=== PATIENT | female | born 1990 ===

== ENCOUNTER 2016-09-09 11:03 | Emergency (ER) | payer OTHER ==
[2016-09-09 11:14] VITALS: BP 126/84; PULSE 72; RESP 18; TEMP 98; O2SAT 100
--- NOTE | 2016-09-09 11:30 | ED PDOC ---
HPI: Back Time Seen by Provider: 09/09/16 11:21 Chief Complaint (Nursing): Back Pain History Per: Patient (Back pain since yesterday more on left nonrdaiting. No weakness or paradsthesias. no urinary sxs. Occurred after cleaning/mopping.) Onset/Duration Of Symptoms: Days (2) Current Symptoms Are (Timing): Still Present Quality Of Discomfort: Aching Severity: Moderate Pain Scale Rating Of: 4 Previous Symptoms: Back Pain Associated Symptoms: None Exacerbating Factor(s): Turning, Movement, Sitting Past Medical History Vital Signs: Last Vital Signs Temp 98 F 09/09/16 11:13 Pulse 72 09/09/16 11:13 Resp 18 09/09/16 11:13 BP 126/84 09/09/16 11:13 Pulse Ox 100 09/09/16 11:13 - Medical History PMH: Back Problems - Family History Family History: States: Unknown Family Hx - Home Medications Home Medications: Ambulatory Orders Medication Instructions Recorded Cyclobenzaprine [Cyclobenzaprine 10 mg PO TID #10 tab 09/09/16 HCl] Naproxen [Naprosyn] 500 mg PO Q12H #20 tab 09/09/16 - Allergies Allergies/Adverse Reactions: Allergies Allergy/AdvReac Type Severity Reaction Status Date / Time No Known Allergies Allergy Verified 09/09/16 11:19 Review of Systems Constitutional: Negative for: Fever Genitourinary Female: Negative for: Dysuria, Frequency Musculoskeletal: Positive for: Back Pain Neurological: Negative for: Weakness, Numbness Physical Exam - Physical Exam Appears: Positive for: Non-toxic, Uncomfortable Skin: Positive for: Normal Color, Warm, DRY Back: Positive for: Normal Inspection, Other (para lumbar spasm and tenderness) . Negative for: Vertebral Tenderness Neurologic/Psych: Positive for: Alert. Negative for: Motor/Sensory Deficits - ECG O2 Sat by Pulse Oximetry: 100 Disposition - Clinical Impression Clinical Impression: Back strain, Chronic back pain - Patient ED Disposition Is Patient to be Admitted: No Counseled Patient/Family Regarding: Studies Performed, Diagnosis, Need For Followup, Rx Given - Disposition Referrals: Robert Barney MD [Staff Provider] - [facility] [Outside] Disposition: Routine/Home Disposition Time: 12:33 Condition: FAIR Prescriptions: Cyclobenzaprine [Cyclobenzaprine HCl] 10 mg PO TID #10 tab Naproxen [Naprosyn] 500 mg PO Q12H #20 tab Instructions: Back Pain (ED) Print Language: PERUVIAN
--- NOTE | 2016-09-09 15:22 | RAD ---
PROCEDURE: Radiographs of the Lumbar Spine. HISTORY: trauma r/o fx COMPARISON: No prior. FINDINGS: BONES: Normal alignment. No listhesis. No fracture. DISC SPACES: Unremarkable. OTHER FINDINGS: None. IMPRESSION: Unremarkable radiographs of the lumbar spine.
== END 2016-09-09 13:30 | disposition home or self-care (01) ==
LOC: H.ER 11:03
DX: M54.9 Dorsalgia, unspecified (principal); G89.29 Other chronic pain

== ENCOUNTER 2016-09-28 17:21 | Emergency (ER) | payer OTHER ==
[2016-09-28 17:38] VITALS: BP 125/73; PULSE 66; RESP 18; TEMP 98; O2SAT 98
[2016-09-28] MEDS ORDERED: TDAP Vaccine 0.5 mL Syr IM ONE (17:53)
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
== END 2016-09-28 20:30 | disposition home or self-care (01) ==
LOC: H.ER 17:21
DX: S09.90XA Unspecified injury of head, initial encounter (principal); S69.91XA Unspecified injury of right wrist, hand and finger(s), initial encounter; M25.511 Pain in right shoulder; Y04.0XXA Assault by unarmed brawl or fight, initial encounter; Y92.89 Other specified places as the place of occurrence of the external cause

== ENCOUNTER 2016-10-02 15:37 | Emergency (ER) | payer OTHER ==
[2016-10-02 16:02] VITALS: BP 135/87; PULSE 79; RESP 16; TEMP 98.4; O2SAT 99
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
--- NOTE | 2016-10-02 18:57 | CT ---
Indication: Attention, right elbow, trauma Noncontrast CT of the right elbow Comparison: Right elbow radiographs performed 09/28/16 Technique: Noncontrast axial images of the right elbow. Sagittal coronal reformatted images were generated and reviewed. This CT exam was performed using 1 or more of the falling dose reduction techniques: Automated exposure control, adjustment of the MAA and/or kV according to patient size, and/or use of iterative reconstruction technique. Total exam DLP: 127.30 Findings: Mild soft tissue edema at the level of the elbow joint. No acute fracture. No dislocation. No significant joint effusion. No focal fluid collection or abscess. No evidence of radiopaque foreign body. Impression: Mild soft tissue edema at the level of the elbow joint. No acute fracture.
== END 2016-10-02 19:36 | disposition home or self-care (01) ==
LOC: H.ER 15:37
DX: M25.521 Pain in right elbow (principal); Y04.0XXA Assault by unarmed brawl or fight, initial encounter; Y92.89 Other specified places as the place of occurrence of the external cause

== ENCOUNTER 2017-03-01 13:59 | Emergency (ER) | payer OTHER, SELFPAY ==
[2017-03-01 14:18] VITALS: RESP 16
[2017-03-01] MEDS ORDERED: Sodium Chloride 0.9% 1,000 ML IV SCH (15:00)
[2017-03-01 15:20] LABS: BASO # 0.1 K/uL (0.0-0.2); BASO % 0.7 % (0.0-2.0); EOS # 0.3 K/uL (0.0-0.7); EOS % 3.9 % (0.0-4.0); HEMATOCRIT 39.3 % (34.0-47.0); LYMPH # 2.1 K/uL (1.0-4.3); LYMPH % 28.7 % (20.0-40.0); MEAN CELL VOLUME 96.6 fl (81.0-99.0); MEAN CORPUSCULAR HEMOGLOBIN 32.3 pg (27.0-31.0); MEAN CORPUSCULAR HGB CONC 33.4 g/dL (33.0-37.0); MEAN PLATELET VOLUME 8.3 fl (7.2-11.7); MONO # 0.7 K/uL (0.0-0.8); MONO % 9.2 % (0.0-10.0); NEUT # 4.1 K/uL (1.8-7.0); NEUT % 57.5 % (50.0-75.0); NRBC % 0.1 % (0.0-0.0); RED CELL DISTRIBUTION WIDTH 13.1 % (11.5-14.5); WHITE BLOOD COUNT 7.2 K/uL (4.8-10.8)
[2017-03-01 15:36] LABS: ALB/GLOB RATIO 1.4 (1.0-2.1); ALKALINE PHOSPHATASE 71 U/L (38-126); ALT/SGPT 86 U/L (9-52); AST/SGOT 45 U/L (14-36); BILIRUBIN,TOTAL 0.4 mg/dl (0.2-1.3); BLOOD UREA NITROGEN 7 mg/dl (7-17); CALCIUM 9.2 mg/dL (8.4-10.2); CARBON DIOXIDE 25 mmol/L (22-30); CHLORIDE 104 mmol/L (98-107); GFR AFRICAN-AMERICAN > 60; GLUCOSE,RANDOM 96 mg/dL (65-105); LIPASE 42 U/L (23-300); POTASSIUM 3.8 MMOL/L (3.6-5.0); SODIUM 143 mmol/l (132-148); TOTAL PROTEIN 7.4 G/DL (6.3-8.2)
[2017-03-01] MEDS ORDERED: Iohexol 300 100 ML IJ ONE (15:50)
[2017-03-01] MEDS ORDERED: Sodium Chloride 0.9% 50 ML IV ONE (15:50)
[2017-03-01 16:02] LABS: PARTIAL THROMBOPLASTIN TIME 34.3 Seconds (25.6-37.1)
[2017-03-01 19:10] VITALS: BP 120/71; PULSE 71; TEMP 98; O2SAT 100
== END 2017-03-01 19:10 | disposition home or self-care (01) ==
LOC: H.ER 13:59
DX: N83.292 Other ovarian cyst, left side (principal)
CPT/HCPCS: 74177; 76830; 76856; 80053; 81025; 83690; 85025; 85610; 85730; 86850; 86900; 96374; 96375; 99282; J1885; J2270; J7040; Q9967